=== PATIENT | male | born 1985 | race Caucasian/White ===

== ENCOUNTER 2017-05-07 15:55 | Emergency (ER) | payer BC, OTHER ==
[2017-05-07 16:05] VITALS: TEMP 98.4
--- NOTE | 2017-05-07 16:09 | EDPHY ---
H & P Stated Complaint: dog bite l calf at work Source: Patient - Personal History Current Tetanus/Diphtheria Vaccine: Unsure - Medical/Surgical History Hx Asthma: No Hx Chronic Respiratory Disease: No Hx Diabetes: No Hx Cardiac Disease: No Hx Renal Disease: No Hx Cirrhosis: No Hx Alcoholism: No Hx HIV/AIDS: No Hx Splenectomy or Spleen Trauma: No Other PMH: r acl - Social History Smoking Status: Never smoked HPI/ROS: HPI CHIEF COMPLAINT: Dog bite, left calf HISTORY OF PRESENT ILLNESS: This patient is a pleasant 32-year-old male, significant past medical history for depression, he works at a [employer], sustained a dog bite to left posterior calf. Does not father reported this time. He did go to urgent care was referred to the emergency room for further evaluation of this dog bite. He has minimal pain. No active bleeding. Does have 2 puncture sites to the posterior calf as well as a laceration 3-4 cm in horizontal length gaping, that will need repair. Past Medical History: No significant medical history except for depression Past Surgical History: No recent surgical history Social History: Denies daily use of drugs alcohol tobacco products Family History: Noncontributory ROS REVIEW OF SYSTEMS: A comprehensive 10 point review of systems is otherwise negative aside from elements mentioned in the history of present illness. Exam Constitutional triage nursing summary reviewed, vital signs reviewed, awake/ alert. Eyes normal conjunctivae and sclera, EOMI, PERRLA. HENT normal inspection, atraumatic, moist mucus membranes, no epistaxis, neck supple/ no meningismus, no raccoon eyes. Respiratory clear to auscultation bilaterally, normal breath sounds, no respiratory distress, no wheezing. Cardiovascular rate normal, regular rhythm, no murmur, no edema, distal pulses normal. Gastrointestinal soft, non-tender, no rebound, no guarding, normal bowel sounds, no distension, no pulsatile mass. Genitourinary no CVA tenderness. Musculoskeletal left lower extremity: Left calf, Achilles intact, midway down the calf posterior midline there are 3 areas of concern, 2 puncture wounds, and 1 laceration approximately 3-4 cm in horizontal length, gaping, he is distally neurovascular intact. No active bleeding. Gastrocnemius and calf muscles appears intact. no midline vertebral tenderness, full range of motion, no calf swelling, no tenderness of extremities, no meningismus, good pulses, neurovascularly intact. Skin pink, warm, & dry, no rash, skin atraumatic. Neurologic awake, alert and oriented x 3, AAOx3, moves all 4 extremities equally, motor intact, sensory intact, CN II-XII intact, normal cerebellar, normal vision, normal speech. Psychiatric normal mood/affect. Heme/Lymph/Immune no lymphadenopathy. Differential Diagnosis: Includes but is not limited to and in no particular order, dog bite to left calf, foreign body, soft tissue injury, crush injury, need for antibiotics Medical Decision Making: Plan for this patient Augmentin be started here in the emergency room, x-ray left tib-fib for foreign bodies and fracture, puncture sites will need to be left open. The large laceration to the left posterior calf gaping 3 cm x 2 cm will need to be closed loosely with sutures. Understands this is a dog bite at risk for infection. Augmentin. Patient understands watch his wounds closely for further signs of infection. Discuss risk for benefit about closing this wound is rather large he will benefit from closure with loose approximation of the wound edges. Watch for infection. He understands. Also will need to report this dog bite. This happened at his work. Re-evaluation: ED x-ray left tib-fib: Negative for acute bony abnormality no foreign bodies visualized. Soft tissue injury present. 174: This patient has been been copiously irrigated and cleaned out. He had a rather large calf laceration that is been loosely approximated please see James CHAMORRO note for laceration repair. Patient understands to take Augmentin. Keep a close eye on his wounds for infection. Return emergency room in 10-12 days to have sutures removed. Return earlier if he signs of infection. Understands dog bites her at high risk for infection. Augmentin appropriate treatment. His other puncture wounds have remained open. The 1 calf laceration was so large gaping we loosely approximated. He understands watch this closely. (Brown Vallecillo) Constitutional: Initial Vital Signs Temperature (C) 36.9 C 05/07/17 16:03 Heart Rate 63 05/07/17 16:03 Respiratory Rate 18 05/07/17 16:03 Blood Pressure 140/83 H 05/07/17 16:03 O2 Sat (%) 98 05/07/17 16:03 O2 Delivery Mode Room Air Allergies/Adverse Reactions: Sulfa (Sulfonamide Antibiotics) Allergy (Verified 05/07/17 15:57) Home Medications: Medication Instructions Recorded Amoxicillin/Clavulanate Pot 875 mg PO BID #14 tab 05/07/17 [Augmentin 875 mg tab] ZYRTEC 05/07/17 Medical Decision Making - Diagnostics Imaging Results: Imaging Impressions Tibia/Fibula X-Ray 05/07/17 16:20 Impression: Soft tissue injury, with no acute osseous abnormality. Procedures: Procedure: Laceration repair. I was requested by Dr. Vallecillo to perform wound closure I explained the indications, risks and benefits for both laceration repair and anesthetic administration. Verbal consent was obtained from the patient . The 4 cm laceration on the left calf was anesthetized using 0.5% bupivicaine with epinephrine . After anesthetic administered the patient was observed for a period of time and had no apparent adverse effects. The wound was cleaned, prepped, draped in normal sterile fashion and explored to its base. No foreign body seen, no foreign bodies palpated. A small fascial defect identified The wound edges are reapproximated with 2 simple interrupted 3 0 Prolene sutures which should allow sufficient room for drainage while still decreasing scarring and functionality. He has been informed that all bites are risk of infection in the importance of follow-up has been stressed on numerous instances. I have recommend he follow up with wound care surgeon Dr. Carey Wolfe. He has been provided this referral information The wound repair was simple. The procedure was performed by myself. Patient has been informed that scarring will occur, although efforts have been made to minimize this. (Christy Ramirez) - Data Points Medications Given: Discontinued Medications Amoxicillin/Clavulanate Potassium (Augmentin 875mg) 875 mg PO EDNOW ONE PRN Reason: Protocol Stop: 05/07/17 16:21 Last Admin: 05/07/17 16:29 Dose: 875 mg Departure - Departure Disposition: Home, Routine, Self-Care Clinical Impression: Laceration Dog bite Qualifiers: Encounter type: initial encounter Qualified Code(s): W54.0XXA - Bitten by dog, initial encounter Condition: Good Instructions: Animal Bite (ED), Care For Your Stitches (ED), Laceration (ED) Additional Instructions: 1. Watch closely for infection. 2. Take antibiotic as prescribed. Watch for signs of infection this includes redness, swelling, drainage, pus. Increasing pain. 3. You will need to have your sutures removed in 10-12 days. Referrals: Carey Wolfe MD [Medical Doctor] - 1 day without fail Prescriptions: Amoxicillin/Clavulanate Pot [Augmentin 875 mg tab] 875 mg PO BID #14 tab
[2017-05-07] MEDS ORDERED: AMOXICILLIN/CLAVULANATE POT 875/125 MG TAB PO ONE (16:20)
[2017-05-07 17:42] VITALS: BP 138/80; PULSE 60; RESP 16; O2SAT 99
== END 2017-05-07 17:42 | disposition home or self-care (01) ==
PROC: 0HQLXZZ Repair Left Lower Leg Skin, External Approach (ICD-10-PCS; principal; 2017-05-07)
DX: S81.812A Laceration without foreign body, left lower leg, initial encounter (principal); W54.0XXA Bitten by dog, initial encounter